=== PATIENT | male | born 1965 | race Caucasian/White ===

== ENCOUNTER 2021-05-22 20:37 | Emergency (ER) | payer OTHER, SELFPAY ==
[2021-05-22 20:57] VITALS: BP 152/87; PULSE 120; RESP 20; TEMP 36.3; O2SAT 98
--- NOTE | 2021-05-23 01:05 | PC.NURSE ---
Pt upset re: wait. Yelling: This could be something simple and I don't have time to wait around. all I wanted was a test so I can go back to work! Pt then seen leaving ED wr, walking toward parking lot.
--- NOTE | 2021-05-23 02:15 | PC.NURSE ---
No answer and not present in wr when called for ED room assignment.
== END 2021-05-23 02:22 | disposition left against medical advice (07) ==
LOC: ANHED 05-23 02:21
PROVIDERS: PCP Internal Medicine
DX: R11.10 Vomiting, unspecified (principal)
CPT/HCPCS: 99199

== ENCOUNTER 2021-05-23 15:01 | Emergency (ER) | payer OTHER, SELFPAY ==
[2021-05-23 15:13] VITALS: BP 130/82; PULSE 87; RESP 16; TEMP 36.4; O2SAT 100
--- NOTE | 2021-05-23 15:15 | ED.HA ---
HPI - Headache General Chief Complaint: Headache Stated Complaint: Headache Time Seen by Provider: 05/23/21 15:15 Source: patient Mode of arrival: ambulatory Limitations: no limitations History of Present Illness HPI Narrative: Lonnie Day is a 56 yo male with a PMH of HTN, hyperlipideima social anxiety, who comes to express care as he vomited twice yesterday while at work and had to leave work and is still not feeling that well today so he did not go to work this morning. He has had his medication today and drink well water she has been has not tried to eat anything more solid than that. Asked if he felt he needed antiemetic he said no; asked if he could visit his parents tomorrow and left to his discretion based on how he feels Related Data Allergies Allergy/AdvReac Type Severity Reaction Status Date / Time No Known Allergies Allergy Verified 05/23/21 15:27 Review of Systems Review of Systems: CONSTITUTIONAL: Denies fever, chills, sweats. EYES: Denies visual changes, redness, discharge. ENT: Denies rhinorrhea, congestion, sore throat, otalgia. CARDIOVASCULAR: Denies chest pain, palpitations, edema. RESPIRATORY: Denies dyspnea, wheezing, cough GASTROINTESTINAL: Denies abdominal pain, has had nausea, vomiting x2 last night, diarrhea. GENITOURINARY: Denies dysuria, hematuria, abnormal discharge SKIN: Denies rash or itching. NEUROLOGIC: Denies numbness, or focal weakness. PSYCHIATRIC: Denies anxiety or depression. PMFSH Past Medical History Medical History Hyperlipidemia LDL goal <130 Hypertension Social anxiety disorder Family History Family History Mother Parkinson disease Father Diabetes mellitus Hypertension Social History Social History (Updated 05/23/21 @ 15:31 by Kim Barber CNP) Smoking status: Never smoker Alcohol intake: current Drinks per week: 2 Alcohol use details: occasionally, due to arthritis in left ankle sometimes uses alcohol for pain relief Substance use: never Comments At time of signature, I agree with nursing past medical, surgical, social and family history. There is no relevant family history pertinent to the presenting complaint. Exam Narrative: GENERAL: This is a well-nourished, well-developed patient, in no distress. HEAD: normocephalic, atraumatic. EYES: Sclera clear/white. Vision is grossly intact. EARS: External ears normal, . Hearing grossly intact. NOSE: External nose normal without nasal discharge, nares without redness, no rhinorrhea. THROAT: Mucous membranes moist, NECK: Neck supple, CARDIOVASCULAR: Regular rate and rhythm without murmurs, gallops, or rubs. RESPIRATORY: Clear to auscultation. Breath sounds equal bilaterally. No wheezes, rales, or rhonchi. GASTROINTESTINAL: Abdomen soft, SKIN: warm, intact with no suspicious lesions or rash, good texture and turgor. NEURO: awake, alert, and oriented to person, place and time. There were no obvious focal neurologic abnormalities. Steady gait EXTREMITIES: Normal range of motion. BACK: Nontender without deformity Course Course Emergency Course: Patient vomited x2 last night had a headache he left work early he went to the emergency room but left without being seen as the wait was too long and today woke up with a slight headache and a little nausea but took his pills and drink water and has had no problems since then Patient with a when an antiemetic or other medication he said that he wanted to rest and gradually increase his diet to solid foods Follow-up with primary care physician this week if there is further issues Vital Signs Vital signs: Vital Signs Temperature 97.6 F 05/23/21 15:13 Pulse Rate 87 05/23/21 15:13 Respiratory Rate 16 05/23/21 15:13 Blood Pressure 130/82 05/23/21 15:13 Pulse Oximetry 100 05/23/21 15:13 Temperature 97.6 F 10
== END 2021-05-23 15:38 | disposition home or self-care (01) ==
PROVIDERS: Emergency Provider Nurse Practitioner; PCP Internal Medicine
DX: R11.14 Bilious vomiting (principal); E78.5 Hyperlipidemia, unspecified; I10 Essential (primary) hypertension; F40.11 Social phobia, generalized; M19.072 Primary osteoarthritis, left ankle and foot
CPT/HCPCS: 99213; G0463

== ENCOUNTER → 2021-08-18 12:18 | Outpatient (CLI) | payer OTHER, SELFPAY ==
--- NOTE | ~2021-08-18 | XR_ITS ---
EXAMINATION: XR chest 2V EXAM DATE: 08/18/2021 12:28 INDICATION: R22.1 - Localized swelling, mass and lump, neck . TECHNIQUE: Frontal and lateral projections of the chest obtained and reviewed. There is no prior nikita dy for comparison. FINDINGS: The lungs are clear. There are no pleural effusions. The cardiomediastinal silhouette is within normal limits. There is no pneumothorax suspected. The bones and soft tissues are unremarkab le. IMPRESSION: Unremarkable chest x-ray exam. Consider soft tissue ultrasound of symptomatic region. Reviewed, dictated and finalized at location A. [employer]PER IMPRESSION: Unremarkable chest x-ray exam. Consider soft tissue ultrasound of s ymptomatic region.
== END ==
PROVIDERS: PCP Family Medicine; Visit Provider Family Medicine
DX: R21 Rash and other nonspecific skin eruption (principal)
CPT/HCPCS: 71046

== ENCOUNTER 2021-09-04 14:07 | Outpatient (CLI) | payer OTHER, SELFPAY ==
--- NOTE | 2021-09-04 14:10 | ECG_ITS ---
Measurements Intervals [place] Rate: 84 P: 38 MO: 203 QRS: -6 QRSD: 108 T: 83 QT: 361 QTc: 427 Interpretive Statements SINUS RHYTHM CANNOT RULE OUT SEPTAL INFARCT, AGE INDETERMINATE BORDERLINE ST-T WAVE ABNORMALITY- HIGH LATERAL LEADS BASELINE ARTIFACT- I, II, III, V5-V6 ABNORMAL ECG Electronically Signed On 09-04-2021 14:47:46 INSTRUCTIONAL LEADER by Cristian Erickson D.O.
[2021-09-04 14:47] LABS: Anion Gap 9 mmol/L (8-16); Blood Urea Nitrogen 19 mg/dL (9-20); Calcium 9.1 mg/dL (8.4-10.2); Carbon Dioxide 34 mmol/L (22-30); Chloride 96 mmol/L (98-107); Estimated Glomerular Filt Rate > 60; Glucose 105 mg/dL (65-110); Potassium 3.1 mmol/L (3.4-5.0); Sodium 139 mmol/L (137-145)
== END 2021-09-04 14:08 | disposition home or self-care (01) ==
PROVIDERS: Anesthesiology; PCP Internal Medicine; Visit Provider Surgery
DX: Z79.899 Other long term (current) drug therapy (principal); I10 Essential (primary) hypertension; Z01.818 Encounter for other preprocedural examination; R94.31 Abnormal electrocardiogram [ECG] [EKG]
CPT/HCPCS: 36415; 80048; 93005

== ENCOUNTER 2021-09-07 00:16 | Day surgery (SDC) | payer OTHER, SELFPAY ==
[2021-09-01 15:28] VITALS: BMI 27.8
--- NOTE | 2021-09-01 15:39 | PC.NURSE ---
Report to the Outpatient Waiting Room, entrance under the green pavilion located off [facility], at time 6:30 on date 09/07/21. OR Time: 8:30. - You will be asked a series of questions to screen for COVID 19 for your protection. - A mask is required within the hospital. - No visitors are allowed at this time. Preoperative COVID Testing Requirements: No COVID Test needed if: (proof is required; if not received patient will have Rapid Test prior to entry) - Patient has received COVID Vaccine at least 14 days prior to procedure date or - Patient has positive COVID test result within last 90 days of surgery date. COVID Test needed if above criteria is not met Patients may have clear liquids (water, carbonated beverages, clear teas, apple juice) until 3 hours prior to surgery (5:30) with a maximum of 20 ounces. - No food from midnight until time of surgery Take the following medications with a SIP of water the morning of surgery: METOPROLOL, VENLAFAXINE Medications to discontinue per physician: VITAMINS/SUPPLEMENTS (POTASSIUM) Date to take last dose: 09/03/[address] DIEHL'S INSTRUCTIONS REGARDING ASPIRIN Please no make-up, nail macedonian, hairspray, perfume, deodorant, or body powder the day of surgery. No jewelry (including any body piercings) or valuables the day of surgery, leave them at home. Please take a shower or bath the night before, or the morning of, surgery with an antibacterial soap. Wear comfortable, loose fitting clothing. - Jewelry must be removed prior to entering the operating room. Rings and piercings that are not removed may be cut off. - The hospital will not accept responsibility for valuables. - Please leave all valuables, including medications, at home the day of surgery. If you are going home after surgery, a licensed charter coach driver must drive you home. - NO public transportation without another adult. - We recommend that an adult stay with you for 24 hours following discharge. - We also recommend that you do not drive, make important decision, drink alcoholic beverages, or take any drugs that were not prescribed by your health care provider for at least 24 hours after your discharge time. Follow any additional instructions given to you from your surgeon. Telephone instructions given to RAMY GLASGOW and asked if any additional questions and then verbalized understanding. Patient advised to call surgeon office or pre surgery nurse liaison [phone] if any additional questions.
--- NOTE | 2021-09-07 07:17 | P.PNAN_ITS ---
Anes - Initial Pre Proc Eval Procedure: Operation Date: 09/07/21 09:00 Proposed Procedures p Excisional Biopsy Right Neck Mass - Kailee Mcintosh MD Date/Time: 09/07/21 07:17 Surgeon: Kailee Mcintosh MD Pre Op Diagnosis: right neck mass 10x8cm Patient Data Age: 56 Gender: M Height: 1.8 m Weight: 90.72 kg Allergies Allergy/AdvReac Type Severity Reaction Status Date / Time No Known Allergies Allergy Verified 09/01/21 15:24 Home Medications Medication Instructions Recorded Confirmed Type aspirin 81 mg tablet,delayed 81 mg PO DAILY #90 tablet 03/12/21 09/01/21 Rx release rosuvastatin 10 mg tablet 10 mg PO DAILY #90 tablet 03/12/21 09/01/21 Rx potassium chloride 20 mEq 20 meq PO BID #180 tablet 05/20/21 09/01/21 Rx tablet,extended release(part/cryst) metoprolol succinate 25 mg 25 mg PO DAILY #30 tablet 07/07/21 09/01/21 Rx tablet,extended release 24 hr hydrochlorothiazide 50 mg PO DAILY 08/05/21 09/01/21 History quinapril 40 mg PO DAILY 08/05/21 09/01/21 History venlafaxine 225 mg PO DAILY 08/05/21 09/01/21 History Patient hx anesthesia problems: none Family hx anesthesia problems: none Results Review: All pre-operative results and documents have been reviewed as part of the pre-operative evaluation. [facility] Past Medical History Medical History Depression Hyperlipidemia LDL goal <130 Hypertension Social anxiety disorder Family History Family History Mother Parkinson disease Father Diabetes mellitus Hypertension Social History Social History Smoking status: Never smoker Alcohol intake: current Drinks per week: 2 Alcohol use details: occasionally, due to arthritis in left ankle sometimes uses alcohol for pain relief Substance use: never Substance use type: does not use Living arrangements: with family Spiritual care concerns: No Anes - Eval Final PreProcedure Day of Procedure 09/07/21 07:17 Patient weight: overweight Heart: regular rate and rhythm Lungs: clear to auscultation Airway: Mallampati scale class II Neurological: alert and oriented Last oral intake: >/= 8 hours ASA classification: III Emergent: no Anesthetic plan: proceed Anesthesia type and monitoring: general GIVS and standard monitoring Results Review: All pre-operative results and documents have been reviewed as part of the pre-operative evaluation. Informed Consent: The patient's anesthetic plan and its attendant risks and benefits were discussed with the patient/family/POA. Questions were solicited and answers provided to the satisfaction of the patient/family/POA.
--- NOTE | 2021-09-07 07:26 | WPDHPUPDATE1 ---
History and Physical Update Update Date/Time: 09/07/21 07:26 History and Physical has been reviewed, including an updated exam of the patient. There are NO changes in the patient's condition. Risks, benefits, and alternatives have been discussed and questions answered. Patient agrees to proceed with procedure.
[2021-09-07 07:45] VITALS: BP 134/93; PULSE 74; RESP 18; TEMP 36.3; O2SAT 98
[2021-09-07] MEDS: LACTATED RINGERS 1,000 ML 30 ML IV CONT (07:45)
[2021-09-07] MEDS: ceFAZolin 2 GM/D5W 50 ML 2 GM/50 ML BAG IVPB (08:30)
[2021-09-07] MEDS: BUPIVACAINE/EPINEPHRINE 0.5% 10 ML VIAL 30 ML INFILTRATE (08:38)
--- NOTE | 2021-09-07 09:12 | W.PM.PROC2 ---
Procedure Note - Detailed Date of Procedure 09/07/21 Pre-op Diagnosis right neck mass 10x8cm Post-op Diagnosis same Procedure Performed Excisional biopsy right anterior neck/shoulder mass Surgeon Kailee Mcintosh MD Anesthesia MAC and local Indications 56-year-old male presenting to the office with a right anterior neck/shoulder mass that has significantly grown in size over the last couple of months Findings large subcutaneous mass right anterior neck/shoulder, no involvement of underlying muscle Description of Procedure The patient was taken to the operating room placed in the supine position. After adequate induction of MAC anesthesia, the patient was prepped and draped in the normal sterile fashion. A time-out was then done to verify the patient's identity, as well as the procedure being performed. I began by localizing the area over the mass. I then made incision over the mass with a 15 blade scalpel. This incision was carried down through the dermis into the subcutaneous tissue. At this point a very large well-circumscribed mass was encountered. Using both blunt dissection and the Bovie cautery, I was slowly able to take down the adhesions to this mass. The mass was noted to travel posteriorly to the trapezius muscle, however, it did not seem to involve the muscle. Once the mass was completely freed up, I was able to excise it full. This was now sent to pathology for further review. No other pathology was seen in this area. I gained hemostasis with the Bovie cautery and the wound was washed out with normal saline. I then closed subcutaneous tissue with 3-0 Vicryl suture. The skin was closed with 4-0 Monocryl subcuticular suture. Dermabond was placed on the wound. The patient tolerated the procedure well and will be sent to the recovery room in stable condition. Estimated Blood Loss 10 Drains No Packing No Pathology yes Complications No immediate complications Condition stable Disposition PACU
[2021-09-07 09:18] VITALS: BP 115/65; PULSE 74; RESP 16; O2SAT 93
[2021-09-07 09:47] VITALS: BP 118/72; PULSE 72; RESP 16; O2SAT 98
[2021-09-07 10:18] VITALS: BP 134/76; PULSE 66; RESP 16
== END 2021-09-07 10:30 | disposition home or self-care (01) ==
PROVIDERS: PCP Internal Medicine; Visit Provider Surgery
PROC: (CPT 21552; principal; 2021-09-07 09:00)
DX: D17.0 Benign lipomatous neoplasm of skin and subcutaneous tissue of head, face and neck (principal); Z79.82 Long term (current) use of aspirin; I10 Essential (primary) hypertension; F32.9 Major depressive disorder, single episode, unspecified; E78.5 Hyperlipidemia, unspecified; F41.8 Other specified anxiety disorders
CPT/HCPCS: 21552; 36415; 80048; 88304; 93005; A9270; J0690; J1100; J2250; J2405; J2704; J3010; J7120

== ENCOUNTER 2022-03-01 01:34 | Day surgery (SDC) | payer OTHER, SELFPAY ==
[2022-02-09 12:25] VITALS: BMI 27.9
--- NOTE | 2022-03-01 10:24 | WPDANESEPPF ---
Anes - Initial Pre Proc Eval Procedure: Operation Date: 03/01/22 12:30 Proposed Procedures p Screening Colonoscopy - Jose Roberto Johnston MD Date/Time: 03/01/22 10:24 Surgeon: Jose Roberto Johnston MD Pre Op Diagnosis: neoplasm screening Patient Data Age: 57 Gender: M Height: 1.8 m Weight: 91 kg Allergies Allergy/AdvReac Type Severity Reaction Status Date / Time No Known Allergies Allergy Verified 03/01/22 10:48 Home Medications Medication Instructions Recorded Confirmed Type potassium chloride 20 mEq 20 meq PO BID #180 tabs 05/20/21 03/01/22 Rx tablet,extended release(part/cryst) (Klor-Con M) quinapril 40 mg tablet 40 mg PO DAILY 08/05/21 03/01/22 History venlafaxine 75 mg capsule,extended 225 mg PO DAILY 08/05/21 03/01/22 History release 24 hr metoprolol succinate 25 mg 25 mg PO DAILY #90 tabs 12/28/21 03/01/22 Rx tablet,extended release 24 hr aspirin 81 mg tablet,delayed 81 mg PO DAILY #90 tabs 01/04/22 03/01/22 Rx release hydrochlorothiazide 50 mg tablet 50 mg PO DAILY #90 tabs 01/04/22 03/01/22 Rx rosuvastatin 10 mg tablet 10 mg PO DAILY #90 tabs 01/04/22 03/01/22 Rx sodium sul 1.479 gram-potas ch See Rx Instructions PO PER PKG DIR 01/04/22 03/01/22 Rx 0.188 gram-magnes sul 0.225 gram #24 tabs tablet (Sutab) Cosopt (PF) 2 drp EACH EYE BID 02/09/22 03/01/22 History brimonidine 0.2 % eye drops 2 drp EACH EYE DAILY 02/09/22 03/01/22 History Patient hx anesthesia problems: none Family hx anesthesia problems: none Results Review: All pre-operative results and documents have been reviewed as part of the pre-operative evaluation. [facility] Past Medical History Medical History Depression Hyperlipidemia LDL goal <130 Hypertension Social anxiety disorder Surgical History Surgical History History of excision of mass Excisional biopsy right anterior neck/shoulder mass 09/07/21. Family History Family History Mother Parkinson disease Father Diabetes mellitus Hypertension Social History Social History Smoking status: Never smoker Alcohol intake: current Drinks per week: 2 Alcohol use details: on occassion Substance use: never Substance use type: does not use Living arrangements: with family Spiritual care concerns: No Anes - Eval Final PreProcedure Day of Procedure 03/01/22 10:24 Patient weight: overweight Heart: regular rate and rhythm Lungs: clear to auscultation Airway: Mallampati scale class II Neurological: alert and oriented Last oral intake: >/= 8 hours ASA classification: II Emergent: no Anesthetic plan: proceed Anesthesia type and monitoring: general GIVS and standard monitoring Results Review: All pre-operative results and documents have been reviewed as part of the pre-operative evaluation. Informed Consent: The patient's anesthetic plan and its attendant risks and benefits were discussed with the patient/family/POA. Questions were solicited and answers provided to the satisfaction of the patient/family/POA.
[2022-03-01 10:49] VITALS: BP 124/90; PULSE 73; RESP 18; TEMP 36.6; O2SAT 98
[2022-03-01] MEDS: LACTATED RINGERS 1,000 ML 150 ML IV CONT (10:52)
--- NOTE | 2022-03-01 11:24 | PM.HPGS ---
History of Present Illness History of Present Illness Consent: Risks, benefits, and alternatives have been discussed and questions answered. Patient agrees to proceed with procedure. Chief complaint: neoplasm screening Narrative: Lonnie Day is a 57 year old male here for first screening colonoscopy Review of Systems Constitutional: Constitutional: Denies headache(s) and Denies weakness Eyes: Eyes: Denies blurry vision ENT: Reports Normal hearing present, Denies headache(s) and Denies neck pain Cardiovascular: Cardiovascular: Denies chest pain and Denies dyspnea Respiratory: Respiratory: Denies dyspnea Gastrointestinal: Gastrointestinal: Reports no additional gastrointestinal complaints Genitourinary: Genitourinary: Denies dysuria Musculoskeletal: Musculoskeletal: Denies neck pain Integumentary/Breasts: Skin/Breast: Denies dry skin Neurologic: Reports Normal hearing present, Denies headache(s) and Denies weakness Psychiatric: Psychiatric: Denies anxiety Endocrine: Endocrine: Denies change in body appearance Hematologic/Lymphatic: Hematologic/Lymphatic: Denies easy bleeding Allergic/Immunologic: Allergic/Immunologic: Denies urticaria PMF Past Medical History Medical History (Updated 03/01/22 @ 11:25 by Jose Roberto Johnston MD) Colon cancer screening Depression Hyperlipidemia LDL goal <130 Hypertension Social anxiety disorder Surgical History Surgical History History of excision of mass Excisional biopsy right anterior neck/shoulder mass 09/07/21. Family History Family History Mother Parkinson disease Father Diabetes mellitus Hypertension Social History Social History Smoking status: Never smoker Alcohol intake: current Drinks per week: 2 Alcohol use details: on occassion Substance use: never Substance use type: does not use Living arrangements: with family Spiritual care concerns: No Meds Home Medications and Allergies Home Medications Medication Instructions Recorded Confirmed Type potassium chloride 20 mEq 20 meq PO BID #180 tabs 05/20/21 03/01/22 Rx tablet,extended release(part/cryst) (Klor-Con M) quinapril 40 mg tablet 40 mg PO DAILY 08/05/21 03/01/22 History venlafaxine 75 mg capsule,extended 225 mg PO DAILY 08/05/21 03/01/22 History release 24 hr metoprolol succinate 25 mg 25 mg PO DAILY #90 tabs 12/28/21 03/01/22 Rx tablet,extended release 24 hr aspirin 81 mg tablet,delayed 81 mg PO DAILY #90 tabs 01/04/22 03/01/22 Rx release hydrochlorothiazide 50 mg tablet 50 mg PO DAILY #90 tabs 01/04/22 03/01/22 Rx rosuvastatin 10 mg tablet 10 mg PO DAILY #90 tabs 01/04/22 03/01/22 Rx sodium sul 1.479 gram-potas ch See Rx Instructions PO PER PKG DIR 01/04/22 03/01/22 Rx 0.188 gram-magnes sul 0.225 gram #24 tabs tablet (Sutab) Cosopt (PF) 2 drp EACH EYE BID 02/09/22 03/01/22 History brimonidine 0.2 % eye drops 2 drp EACH EYE DAILY 02/09/22 03/01/22 History Allergies Allergy/AdvReac Type Severity Reaction Status Date / Time No Known Allergies Allergy Verified 03/01/22 10:48 Vital Signs Vital Signs - 24 hr 03/01/22 10:49 Temperature 97.8 F Pulse Rate 73 Respiratory Rate 18 Blood Pressure 124/90 Pulse Oximetry 98 Oxygen Delivery Room Air Exam Const: General: comfortable and no acute distress HENMT: General nose exam: Normal nares present Eyes: General: appearance normal, both eyes and all related structures Neck: Neck: no JVD Resp: Auscultation: clear to auscultation bilaterally Cardio: Rate: regular rate Rhythm: regular rhythm GI: Inspection: non-distended GI Palp: Yes Soft to palpation Skin: General skin exam: normal color Neuro: General: gait normal Speech: normal speech Extrem: General: normal to inspection P
[2022-03-01 11:52] VITALS: BP 93/63; PULSE 74; RESP 18; O2SAT 94
[2022-03-01 12:02] VITALS: BP 112/78; PULSE 87; RESP 18; O2SAT 98
[2022-03-01 12:12] VITALS: BP 122/86; PULSE 64; RESP 18; O2SAT 97
== END 2022-03-01 12:21 | disposition home or self-care (01) ==
PROVIDERS: PCP Family Medicine; Visit Provider Internal Medicine Gastroenterology
PROC: 0DJD8ZZ Inspection of Lower Intestinal Tract, Via Natural or Artificial Opening Endoscopic (ICD-10-PCS; CPT 45378; principal; 2022-03-01 12:30)
DX: Z12.11 Encounter for screening for malignant neoplasm of colon (principal); K64.8 Other hemorrhoids; I10 Essential (primary) hypertension; E78.5 Hyperlipidemia, unspecified; F32.A Depression, unspecified; F41.8 Other specified anxiety disorders
CPT/HCPCS: 45378; J2704; J7120

== ENCOUNTER 2022-05-11 23:36 | Emergency (ER) | payer OTHER, SELFPAY ==
--- NOTE | ~2022-05-11 | XR_ITS ---
EXAMINATION: XR finger 3rd RT min 2V DATE: 05/12/2022 02:12 INDICATION: Right hand third digit laceration. TECHNIQUE: 3 views of right hand third digit were obtained. COMPARISON: None. FINDINGS: There is radial subluxation of second and third distal phalanges with respect to the middle phalanges. No fracture. There is severe osteoarthritis of second and third distal interphalangeal kamryn ints and third metacarpophalangeal joint. There is mild osteoarthritis of third proximal interphalang eal joint and second metacarpophalangeal joint. There are dystrophic soft tissue calcifications in th e third digit dorsal to the middle phalanx and palmar to the proximal phalanx. There is a laceration of the tip of the third digit. IMPRESSION: 1. No fracture or radiopaque foreign body. 2. Polyarticular osteoarthritis. Reviewed, dictated and finalized at location A.
[2022-05-12 00:05] VITALS: BP 135/102; PULSE 106; RESP 16; TEMP 36.5; O2SAT 100
--- NOTE | 2022-05-12 00:59 | ED.WOUNDLAC ---
HPI - Wound/Laceration General Chief Complaint: Wound/Laceration Stated Complaint: laceration on finger Time Seen by Provider: 05/12/22 00:38 Source: patient Mode of arrival: ambulatory Limitations: no limitations History of Present Illness HPI narrative: This is a 57-year-old male that presents to the emergency department for right third finger injury sustained just prior to arrival. Reports he accidentally got the finger caught in some equipment at work. Reports laceration to the distal phalanx palmar surface. He is not up-to-date on tetanus. Denies decreased range of motion or numbness. Related Data Home Medications Medication Instructions Recorded Confirmed venlafaxine 75 mg capsule,extended 225 mg PO DAILY 08/05/21 03/01/22 release 24 hr Cosopt (PF) 2 drp EACH EYE BID 02/09/22 03/01/22 brimonidine 0.2 % eye drops 2 drp EACH EYE DAILY 02/09/22 03/01/22 Allergies Allergy/AdvReac Type Severity Reaction Status Date / Time No Known Allergies Allergy Verified 03/01/22 10:48 Review of Systems Review of Systems: CONSTITUTIONAL: Denies fever SKIN: Reports laceration MUSCULOSKELETAL: Denies joint pain NEUROLOGIC: Denies numbness All systems reviewed & are unremarkable except as noted in HPI and below PMFSH Past Medical History Medical History (Updated 05/12/22 @ 03:21 by Sherry Kaplan PA-C) Colon cancer screening Depression Hyperlipidemia LDL goal <130 Hypertension Social anxiety disorder Surgical History Surgical History History of excision of mass Excisional biopsy right anterior neck/shoulder mass 09/07/21. Family History Family History Mother Parkinson disease Father Diabetes mellitus Hypertension Social History Social History Smoking status: Never smoker Alcohol intake: current Drinks per week: 2 Alcohol use details: on occassion Substance use: never Substance use type: does not use Spiritual care concerns: No Exam Narrative: GENERAL: Well-appearing, well-nourished, and in no acute distress. HEAD: Normocephalic, atraumatic. EYES: EOMI. EXTREMITIES: Normal range of motion. No edema. Right third finger palmar surface with 2cm irregular flap laceration involving the palmar aspect of the distal phalanx with some skin avulsed SKIN: Warm, dry, no rash. NEURO: No focal deficits. Alert and oriented x3. PSYCH: Normal mood and affect Course Vital Signs Vital signs: Vital Signs Temperature 97.7 F 05/12/22 00:05 Pulse Rate 106 H 05/12/22 00:05 Respiratory Rate 16 05/12/22 00:05 Blood Pressure 135/102 H 05/12/22 00:05 Pulse Oximetry 100 05/12/22 00:05 Oxygen Delivery Room Air 05/12/22 00:05 Temperature 97.7 F 05/12/22 00:05 Pulse Rate 106 H 05/12/22 00:05 Respiratory Rate 18 05/12/22 03:42 Blood Pressure 135/102 H 05/12/22 00:05 Pulse Oximetry 98 05/12/22 03:42 Oxygen Delivery Room Air 05/12/22 00:05 Procedures Laceration Laceration 1: Date: 05/12/22 Time: 03:19 Site: hand Side (If applicable): right Size (cm): 2 Description: flap and irregular Depth: simple, single layer Local Anesthetic: lidocaine 1% Amount of anesthesia used (mL): 5 Pre-repair: wound explored and irrigated extensively ====== Skin Level ====== Skin layer closed with: nylon Size (cm): 4-0 Number of sutures: 2 Technique: simple, interrupted ====== Subcutaneous Layer ====== ====== Muscle Layer ====== ====== Tendon Layer ====== Dressing: There was some bleeding that was controlled with silver nitrate. Wound bandaged with antibiotic ointment, Telfa, Kerlix and Coban MDM - Wound/Laceration MDM Narrative Medical decision making narrative: Patient presents emergen
[2022-05-12] MEDS: TETANUS,DIPHTHERIA,AC PERTUSSIS ADULT (0.5 ML) BOOSTRIX IM (02:08)
[2022-05-12 03:42] VITALS: RESP 18; O2SAT 98
== END 2022-05-12 03:43 | disposition home or self-care (01) ==
PROVIDERS: Emergency Provider General Practice; PCP Family Medicine
DX: S61.212A Laceration without foreign body of right middle finger without damage to nail, initial encounter (principal); F32.9 Major depressive disorder, single episode, unspecified; I10 Essential (primary) hypertension; E78.5 Hyperlipidemia, unspecified; W31.9XXA Contact with unspecified machinery, initial encounter; Z23 Encounter for immunization
CPT/HCPCS: 12001; 73140; 90471; 90715; 99283

== ENCOUNTER 2023-04-18 09:44 | Outpatient (CLI) | payer OTHER, SELFPAY ==
[2023-04-18 18:46] LABS: Alanine Aminotransferase 29 U/L (6-50); Albumin Level 4.2 g/dL (3.5-5.1); Alkaline Phosphatase 102 U/L (38-126); Anion Gap 2 mmol/L (8-16); Aspartate Amino Transferase 34 U/L (17-59); Bilirubin,Total 0.3 mg/dL (0.2-1.3); Blood Urea Nitrogen 17 mg/dL (9-20); Carbon Dioxide 38 mmol/L (22-30); Chloride 95 mmol/L (98-107); Cholesterol 151 mg/dL (0-200); Estimated Glomerular Filt Rate > 60; Glucose 95 mg/dL (65-110); HDL Direct 45 mg/dL; Potassium 3.6 mmol/L (3.4-5.0); Sodium 135 mmol/L (137-145); Triglycerides 139 mg/dL (<150)
[2023-04-18 19:00] LABS: LDL Cholesterol Direct 81 mg/dL
[2023-04-18 19:16] LABS: Prostate Specific Antigen 0.2 ng/mL (< OR = 4.0)
== END 2023-04-18 09:45 | disposition home or self-care (01) ==
LOC: ANHGOSHLAB 09:47
PROVIDERS: PCP Family Medicine; Visit Provider Family Medicine
DX: E78.5 Hyperlipidemia, unspecified (principal); Z12.5 Encounter for screening for malignant neoplasm of prostate; Z13.228 Encounter for screening for other metabolic disorders
CPT/HCPCS: 36415; 80053; 80061; 84153; G0103

== ENCOUNTER 2024-12-31 15:20 | Outpatient (CLI) | payer OTHER, SELFPAY ==
--- OUTSIDE RECORDS SUMMARY | 2024-12-31 15:25 | XMS_ITS | Encounter Summary ---
Author Organization [facility] Address [address] [facility] [place] [address] Care Team Providers Care Brilliandeer Looper Name Role Phone Robb Madrigal MD Primary Care Provider [phone] Adolfo Howell DO Primary Care Provider [phone] Mona Mcclellan MD Primary Care Provider [phone] Reason for Visit * Reason Comments Refill Request Encounter Details Date Type Department Care Team (Late st Contact Info) Description 08/29/2022 Refill [facility] [address] [place] [address] Vijay Humphries MD [address] [place] [address] [place] [address] Refill Request Social History Tobacco Use Types Packs/Day Years Used Date Smoking Tobacco: Never Smokeless Tobacco: Never Alcohol Use Standard Drinks/Week Comments Yes 0 (1 standard drink = 0.6 oz pur e alcohol) frequently AUDIT-C Answer Date Recorded Q1: How often do you have a drink containing alcohol? Never 01/07/2022 Q2: How many drinks containi ng alcohol do you have on a typical day when you are drinking? Patient does not drink Q3: How often do you have si x or more drinks on one occasion? 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 Answer Date of Assessment Author No 12/18/2020 4:20 PM CDT Mateo Mack RN * Is person blind or have serious difficulty seeing? Answer Date of Assessment Author No 12/18/2020 4:20 PM CDT Mateo Mack RN * Does person have serious difficulty walking/climbing stairs? Answer Date of Assessment Author No 12/18/2020 4:20 PM CDT Mateo Mack RN * Does person have difficulty dressing/bathing? Answer Date of Assessment Author No 12/18/2020 4:20 PM VIRIT Mateo Mack RN * Does person have difficulty doing errands alone? Answer Date of Assessment Author No 12/18/2020 4:20 PM VIRIT Mateo Mack RN documented as of this encounter Mental Status * Does person have difficulty concentrating/remembering/making decisions? Answer Entry Date Author No 12/18/2020 4:20 PM Mateo Junior RN documented in this encounter Plan of Treatment Upcoming Encounters Date Type Department Care Team (Late st Contact Info) Description 03/19/2025 10:30 AM CDT Office Visit [facility] - Ophthalmology [address] [place] [phone] documented as of this encounter Visit Diagnoses Not on filedocumented in this encounter Care Teams Brilliandeer Looper Relationship Specialty Start Date End Date Robb Madrigal MD [address] [place] [address] PCP - General 08/25/22 09/07/22 Adolfo Howell DO [address] [place] [address] PCP - General 09/08/22 12/23/24 Mona Mcclellan MD [address] [place] [phone] PCP - General Family Medicine 12/24/24 documented as of this encounter
--- OUTSIDE RECORDS SUMMARY | 2024-12-31 15:25 | XMS_ITS | Clinical Summary ---
Author Organization [facility] Address [address] [facility] [place] [address] Care Team Providers Care Life Skills Worker Name Role Phone Mona Mcclellan MD Primary Care Provider [phone] Source Comments [facility],non-owned Affiliates and Associated Physician Practices is amultiple site organization consisting of ambulatory clinics and hospital sitesin [place], [place], [place] and [place]. This disclosure is being madepursuant to the Care Everywhere program and may not contain all information available regarding this patient. Last updated 18.[facility] Allergies No known active allergies Medications * Be aware that medications may not be up to date on this document. Alwaysverify current medications with the patient. aspirin EC (ECOTRIN) 81 MG tablet Take 1 (one) tablet by mouth once daily Active quinapril (ACCUPRIL) 40 MG tablet Take 1 (one) tablet by mouth once daily Active venlafaxine XR 24hr (EFFEXOR XR) 75 MG capsule Take 1 (one) capsule by mouth once daily Active rosuvastatin (CRESTOR) 10 MG tablet Take 1 (one) tablet by mouth once daily Active potassium chloride ER (KLOR-CON M) 20 MEQ tablet Take 1 (one) tablet by mouth once daily Active hydroCHLOROthiazi de (HYDRODIURIL) 50 MG tablet Take 0.5 (one-half) tablet by mouth once daily 30 tablet 1 Active metoprolol succinate XL 24hr (TOPROL XL) 25 MG tablet 1 Active sodium chloride, hypertonic, (El 128) 5 % Instill 1 (one) Each into left eye at bedtime Active White Petrolatum-Minera l Oil (Systane Nighttime) Instill 0.25 inches into left eye at bedtime Active dextran 70-hypromellose, PF, 0.1-0.3 % ophthalmic solution Instill 1 (one) drop into left eye every 2 hours Active doxycycline monohydrate 100 MG capsule Take 1 (one) capsule by mouth every 12 hours 60 capsule 2 Active ascorbic acid (Vitamin C) 500 MG tablet Take 4 (four) tablets by mouth once daily 120 tablet 4 2 Active erythromycin (Romycin) 5 MG/GM ophthalmic ointment Apply thin ribbon to incisions four times a day as well as into the left eye at bedtime. 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 (AF LURIA, FLUZONE TRIVALENT; 6MO+) (IIV3) 05/08/2017 Covid Citelighter primary monoval ent 12+ yr 0.3mL Purple cap 07/06/2021,10/27/2020,10/06/2020 FLU VACCINE QUAD IIV4 SPLIT 0.25 ML IM 8 INFLUENZA VACCINE 05/22/2020 INFLUENZA VACCINE, QUADR. (F LUZONE; FLULAVAL; FLUARIX; AFLURIA QUADRIVALENT; 6MO+), 0.5 ML (IIV4) 05/05/2020,05/07/2018 TD (ADULT), 5 LF TETANUS TOX OID, ADSORBED, PF 11/15/2020 Zoster Hzv Vacc Recombinant Inj Im 08/03/2020, iNFLUENZA VACCINE, RECOM-CASTILLO, QUADR. (FLUBLOCK QUADRIVALENT; 18Y+) (RIV4) 05/18/2021 Family History Medical History Relation Name Comments Diabetes - Type 2 Father Hypertension Father Hypertension Mother Glaucoma Neg Hx Macular Degeneration Neg Hx Relation Name Status Comments Father Mother Social History Tobacco Use Types Packs/Day Years Used Date Smoking Tobacco: Never Smokeless Tobacco: Never Tobacco Cessation:Counseling Given: Not Answered Alcohol Use Standard Drinks/Week Comments Yes 0 [...] more drinks on one occasion? 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 Gender Identity Male 11/15/2020 9:52 AM CDT Sexual Orientation Not on file Last Filed Vital Signs Vital Sign Reading Time Taken Comments Blood Pressure 131/81 06/16/2022 12:36 PM CDT Pulse 76 06/16/2022 12:36 PM CDT Temperature 36.4 C (97.5 F) 06/16/2022 12:31 PM CDT Respiratory Rate 14 06/16/2022 12:36 PM CDT Oxygen Saturation 97% 06/16/2022 12:36 PM CDT Inhaled Oxygen Concentration 100% 01/07/2022 1 0:23 AM CDT Weight 88.9 kg (196 lb) 06/16/2022 9:53 AM CDT Height 180.3 cm (5' 11 ) 06/16/2022 9:53 AM CDT Body Mass Index 27.34 06/16/2022 9:53 AM CDT Plan of Treatment Upcoming Encounters Date Type Department Care Team (Late st Contact Info) Description 03/19/2025 10:30 AM CDT Office Visit [facility] - [facility]mology [facility] [place] [phone] Health Maintenance Due Date Last Done Comments COLON MONITORING 1967 COLONOSCOPY - COLON CA SCREENING 1967 CT COLONOGRAPHY - COLON CA SCREENING 1967 FIT - COLON CA SCREENING 1967 FLEX SIG - COLON CA SCREENING 1967 HIV SCREENING 1982 HEPATITIS C SCREENING 01/12/1985 HEPATITIS B VACCINE (1 of 3 - 19+ 3-dose series) 1986 PNEUMOCOCCAL VACCINE 50+ (1 of 1 - PCV) 2017 COLOGUARD (AGES 45-75) - COLON CA SCREENING 01/15/2023 01/16/2020 Colorectal Cancer Screening 01/15/2023 COVID-19 VACCINE ( season) 2024 07/06/2021, 10/27/2020, 10/06/2020 INFLUENZA VACCINE (Season Ended) 2025 05/18/2021, 05/22/2020, 05/05/2020, Additional history exists DTAP/TDAP/TD VACCINES (2 - Td or Tdap) 11/15/2030 11/15/2020 ZOSTER VACCINE Completed 08/03/2020, 05/05/2020 DEPRESSION SCREENING Completed 12/24/2024 HIB VACCINE Aged Out No longer eligi ble based on patient's age to complete this topic HPV VACCINE Aged Out No longer eligi ble based on patient's age to complete this topic MENINGOCOCCAL (Group B) VACCINE SHARED DECISION-MAKING Aged Out No longer eligible based on patient's age to complete this topic MENINGOCOCCAL GROUPS A/C/Y/W VACCINE Aged Out No longer eligible based on patient's age to complete this topic Medical Devices Implanted Type Area Supervisor Hairspring Fabrication Device Identifier Shelf Expiration Date Model / Serial / Lot Lens Iol 0 D +18.5 Dottie Mod L Acrsf Iq - [id number] Implanted:Qty: 1 on 12/11/2020 by Kaushal Omalley MD at [facility] Left: Eye [employer]ber [employer] 07/04/2023 [id number] / [id number] / Strip Sclr 125x3.5x.75mm Marbella Sty 41 Implanted:Qty: 1 on 12/18/2020 by Irish Coker MD at [facility] Left: Eye Prydeinig Ophthalmic [employer] 05/21/2025- [id number] Slv Rtnl 70mm 2.1mm 1mm Marbella Rnd Strl Implanted:Qty: 1 on 12/18/2020 by Irish Coker MD at [facility] Left: Eye Prydeinig Ophthalmic [employer] 10/19/2024 [id number] Graft Tissue Amniograft Amnio Membr 1.5 - [id number] Implanted:Qty: 1 on 01/07/2022 by Kaushal Omalley MD at [facility] Left: Eye [employer] 11/13/2022 [id number] / [id number] / Insurance AETNA AETNA AETNA PAYOR GENERIC Member Subscriber Plan / Payer (Ef fective 2020-Present) Name:Ramy Glasgow Member ID:Not on file Relation to Subscriber:Self Name:[id number] POSTAL Payer ID:Not on file Group ID:Not on file Type:Worker's Comp Address: [address] [place] [address] [place] DEPT OF LABOR [facility] DEPT OF LABOR [facility] DEPT OF LABOR [facility] AETNA AETNA [place] [address] [place] [address] AETNA AETNA AETNA AETNA AETNA AETNA AETNA AETNA AETNA AETNA AETNA AETNA AETNA Advance Directives * Full Code (Latest Code Status on File) Date Activated Date Inactivated Comments 11/15/2020 12:17 AM 11/16/2020 3:50 PM Care Teams Life Skills Worker Relationship Specialty Start Date End Date Mona Mcclellan MD [address] [place] [address] PCP - General Family Medicine 12/24/24
--- OUTSIDE RECORDS SUMMARY | 2024-12-31 15:26 | XMS_ITS | Encounter Summary ---
Author Organization [facility] Address [address] [place] [address] Care Team Providers Care Videogame Designer Name Role Phone Adolfo Howell DO Primary Care Provider [phone] Encounter Details Date Type Department Care Team (Late st Contact Info) Description 11/19/2024 Results Follow-Up [facility] Family Medicine at [address] [place] [address] Madelin Sheth [address] [place] [address] Social History Tobacco Use Types Packs/Day Years Used Date Smoking Tobacco: Never Assessed Sex and Gender Information Value Date Recorded Sex Assigned at Not on file 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
--- OUTSIDE RECORDS SUMMARY | 2024-12-31 15:26 | XMS_ITS | Encounter Summary ---
Author Organization [facility] Address [address] [facility] [place] [address] Care Team Providers Care Regulatory Auditor Name Role Phone Adolfo Howell DO Primary Care Provider [phone] Mona Mcclellan MD Primary Care Provider [phone] Reason for Visit * Reason Onset Date Comments Refill Request 01/04/2024 Encounter Details Date Type Department Care Team (Late st Contact Info) Description 01/04/2024 Telephone [facility] - Centralized Scheduling [address] [place] [address] Irish Coker MD [address] 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 Answer Entry Date Author No 12/18/2020 4:20 PM CDT Mateo Mack RN documented in this encounter Miscellaneous Notes * Telephone Encounter - Tavia Rodriguez - 01/04/2024 2:42 PM CDT Pt would like a refill on Dorzolamide Timolol, pt stated Dr. Coker gave to him initially. Pt sees Alonzo documented in this encounter Plan of Treatment Upcoming Encounters Date Type Department Care Team (Late st Contact Info) Description 03/19/2025 10:30 AM CDT Office Visit [facility] - Ophthalmology [address] [place] [phone] documented as of this encounter Visit Diagnoses Not on filedocumented in this encounter Care Teams Regulatory Auditor Relationship Specialty Start Date End Date Adolfo Howell DO [address] [place] [phone] PCP - General 09/08/22 12/23/24 Mona Mcclellan MD [address] [place] [phone] PCP - General Family Medicine 12/24/24 documented as of this encounter
--- OUTSIDE RECORDS SUMMARY | 2024-12-31 15:26 | XMS_ITS | Referral Summary ---
Author Organization [address] Address [address] [place] [address] Care Team Providers Care Graphic Designer Name Role Phone Adolfo Howell Primary Care Provider [phone] Encounters Date Type Department Care Team Description 11/19/2024 Results Follow-Up [facility] Family Medicine at [address] [place] [address] Madelin Sheth PA 11/17/2024 5:22 AM CDT - 11/17/2024 11:59 PM CDT Hospital Encounter [address] [address] Discharge Disposition: Discharge to home or self care 11/17/2024 4:49 PM CDT - 11/17/2024 11:59 PM CDT Hospital Encounter [address] [address] Discharge Disposition: Discharge to home or self care 11/17/2024 4:15 PM CDT Office Visit [facility] Care at [address] [phone] Yessica Talley PA Acute viral syndrome (Primary Dx); Nausea and vomiting, unspecified vomiting type from Last 3 Months Allergies No known active allergies Medications brimonidine (ALPHAGAN) 0.2 % ophthalmic solution INSTILL 1 (ONE) DROP INTO LEFT EYE 2 TIMES DAILY Active hydroCHLOROthia zide (HYDRODIURIL) 50 mg tablet Take 1 tablet (50 mg total) by mouth daily Active lisinopriL (PRINIVIL,ZESTR IL) 40 mg tablet Take 1 tablet (40 mg total) by mouth daily Active metoprolol XL (TOPROL-XL) 25 mg extended release tablet Take 1 tablet (25 mg total) by mouth daily Active mupirocin (BACTROBAN) 2 % ointment APPLY TO WOUND AND COVER. 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, left, sequel a 06/25/2022 Glaucoma suspect of right eye 05/31/2022 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 Eye injury, initial encounter 11/15/2020 Hyperlipidemia 07/03/2019 Anxiety 10/17/2018 Essential hypertension 10/17/2018 Social History Tobacco Use Types Packs/Day Years Used Date Smoking Tobacco: Never Assessed Sex and Gender Information Value Date Recorded Sex Assigned at Not on file 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 Gender Identity Not on file Sexual Orientation Not on file Last Filed Vital Signs Vital Sign Reading Time Taken Comments Blood Pressure 137/86 11/17/2024 4:25 PM CDT Pulse 81 11/17/2024 4:25 PM CDT Temperature 36.3 C (97.4 F) 11/17/2024 4:25 PM CDT Respiratory Rate 24 11/17/2024 4:25 PM CDT Oxygen Saturation 98% 11/17/2024 4:25 PM CDT Inhaled Oxygen Concentration - - Weight - - Height - - Body Mass Index - - Plan of Treatment Not on file Procedures Procedure Name Priority Date/Time Associated Diagnosis Comments INFLUENZA A/B, RSV, AND COVID-19 PCR Routine 11/17/2024 4:49 PM CDT from Last 3 Months Results * Influenza A/B, RSV, and COVID-19 PCR Nasopharyngeal (11/17/2024 4:49 PM CDT) COVID-19 RNA Negative Negative Influenza A RNA Negative Negative [facility] Influenza B RNA Negative Negative [facility] RSV RNA Negative Negative [facility] Comment: Interpretive data: Testing performed by [facility]. This test is performed using the [employer] Xpert Xpress CoV-2/Flu/RSV plus assay. This is a multiplex, real-time reverse transcriptase PCR assay intended for the qualitative detection of nucleic acid from SARS-CoV-2, influenza A, influenza B, and respiratory syncytial virus. This assay has been cleared by the [place] Food and Drug administration. The performance characteristics have been verified by the [facility]. Results must be considered in the clinical context, and a negative result does not rule out infection. Interpretive Data last revised 2023 Nasopharyngeal 11/17/2024 4: 49 PM CDT 11/18/2024 5:44 AM CDT Jean Marie Trivedi MD LAB MICROBIOLOGY - GENERAL OR DERABLES Final Result [facility] [id number] Department [place] [address] from Last 3 Months Insurance [facility] Care Teams Graphic Designer Relationship Specialty Start Date End Date Adolfo Howell DO [address] [place] [address] [address] PCP - General Family Medicine 11/17/24
--- OUTSIDE RECORDS SUMMARY | 2024-12-31 15:26 | XMS_ITS | Clinical Summary ---
Author Organization [facility] [address] Address [address] [place] [address] Care Team Providers Care Manager Primary Care Name Role Phone Adolfo Howell DO Primary Care Provider [phone] Allergies No known active allergies Medications brimonidine [...] Hyperlipidemia 07/03/2019 Anxiety 10/17/2018 Essential hypertension 10/17/2018 Encounters Date Type Department Care Team Description 11/19/2024 Results Follow[facility] Family Medicine at [address] [place] [phone] Madelin Sheth PA 11/17/2024 4:49 PM CDT - 11/17/2024 11:59 PM CDT Hospital Encounter [address] [address] Discharge Disposition: Discharge to home or self care 11/17/2024 4:15 PM CDT Office Visit [facility] Care at [address] [phone] Yessica Talley PA Acute viral syndrome (Primary Dx); Nausea and vomiting, unspecified vomiting type 11/17/2024 5:22 AM CDT - 11/17/2024 11:59 PM CDT Hospital Encounter [address] [address] Discharge Disposition: Discharge to home or self care from Last 3 Months Social History Tobacco Use Types Packs/Day Years Used Date Smoking Tobacco: Never Assessed Sex and Gender Information Value Date Recorded Sex Assigned at Not on file 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 Gender Identity Not on file Sexual Orientation Not on file Obstetrics History Last Filed Vital Signs Vital Sign Reading [...] Mass Index - - Plan of Treatment Health Maintenance Due Date Last Done Comments Colon Cancer Screening-Colonoscopy 1967 Depression Screening 1967 Hepatitis C Screening 1967 Prostate Cancer Screening-PSA 1967 Hepatitis B Screening 1985 Regular Well Visit/Exam 18-64 1985 Covid-19 Vaccine () 04/22/2024 07/04/2023, 07/12/2022, 07/06/2021, Additional history exists Influenza Vaccine (Season Ended) 2025 07/04/2023, 07/12/2022, 05/18/2021, Additional history exists DTaP/Tdap/Td Vaccine (2 - Td or Tdap) 05/12/2032 05/12/2022, 11/15/2020 Zoster Vaccine Completed 08/03/2020, 05/05/2020 Pneumococcal vaccine <65 Aged Out No longer eligible based on patient's age to complete this topic Procedures Procedure Name Priority Date/Time Associated Diagnosis Comments INFLUENZA A/B, RSV, AND COVID-19 PCR Routine 11/17/2024 4:49 PM CDT from Last 3 Months Results * Influenza A/B, RSV, and COVID-19 PCR Nasopharyngeal (11/17/2024 4:49 PM CDT) Pathologist [facility] COVID-19 RNA Negative Negative Influenza A RNA Negative Negative [facility] Influenza B RNA Negative Negative [facility] RSV RNA Negative Negative [facility] Comment: Interpretive data: Testing performed by [facility]. This test is performed using the [employer] Xpert Xpress CoV-2/Flu/RSV plus assay. This is a multiplex, real-time reverse transcriptase PCR assay intended for the qualitative detection of nucleic acid from SARS-CoV-2, influenza A, influenza B, and respiratory syncytial virus. This assay has been cleared by the [place] Food and Drug administration. The performance characteristics have been verified by the [facility]. Results must be considered in the clinical context, and a negative result does not rule out infection. Interpretive Data last revised 2023 Nasopharyngeal 11/17/2024 4: 49 PM CDT 11/18/2024 5:44 AM CDT us Jean Marie Trivedi MD LAB MICROBIOLOGY - GENERAL OR DERABLES Final Result [facility] [id number] Department [place] [address] [place] from Last 3 Months Insurance [facility] Care Teams Manager Primary Care Relationship Specialty Start Date End Date Adolfo Howell DO [address] [facility] [address] [facility] [place] [address] PCP - General Family Medicine 11/17/24
--- OUTSIDE RECORDS SUMMARY | 2024-12-31 15:26 | XMS_ITS | Encounter Summary ---
Author Organization [facility] Address [address] [facility] [place] [address] Care Team Providers Care Network/Telecom Engineer Name Role Phone Robb Madrigal MD Primary Care Provider + [phone] Adolfo Howell DO Primary Care Provider [phone] Robb Madrigal MD Primary Care Provider + [phone] Adolfo Howell DO Primary Care Provider [phone] Mona Mcclellan MD Primary Care Provider + [phone] Encounter Details Date Type Department Care Team (Late st Contact Info) Description 11/16/2020 Ophth Exam [facility] [address] [place] [phone] Lore Carbajal MD [address] [place], [place] [address]y [address] [place] [phone] Social History Tobacco Use Types Packs/Day Years Used Date Smoking Tobacco: Never Alcohol Use Standard Drinks/Week Comments Yes 0 (1 standard drink = 0.6 oz pur e alcohol) AUDIT-C Answer Date Recorded Q1: How often do you have a drink containing alc ohol? 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 Gender Identity Male 11/15/2020 9:52 AM CDT Sexual Orientation Not on file documented as of this encounter Plan of Treatment Upcoming Encounters Date Type Department Care Team (Late st Contact Info) Description 03/19/2025 10:30 AM CDT Office Visit [facility] - Ophthalmology [address] [place] [phone] documented as of this encounter Visit Diagnoses Not on filedocumented in this encounter Additional Health Concerns Infection Onset Date Last Indicated Resolved Time COVID-19 Confirmed 11/24/2020 11/24/2020 4:33 AM CDT documented as of this encounter Care Teams Network/Telecom Engineer Relationship Specialty Start Date End Date Robb Madrigal MD [address] [place] [phone] PCP - General Internal Medicine 11/14/20 05/29/22 Adolfo Howell DO [address] [place] [phone] PCP - General 05/30/22 08/24/22 Robb Madrigal MD [address] [place] [phone] PCP - General 08/25/22 09/07/22 Adolfo Howell DO [address] [place] [phone] PCP - General 09/08/22 12/23/24 Moan Mcclellan MD [address] [place] [phone] PCP - General Family Medicine 12/24/24 documented as of this encounter
--- OUTSIDE RECORDS SUMMARY | 2024-12-31 15:26 | XMS_ITS | Encounter Summary ---
Author Organization [facility] Address [address] [facility] [place] [address] Care Team Providers Care Technician Assistant Name Role Phone Robb Madrigal MD Primary Care Provider + [phone] Adolfo Howell DO Primary Care Provider [phone] Robb Madrigal MD Primary Care Provider + [phone] Adolfo Howell DO Primary Care Provider [phone] Mona Mcclellan MD Primary Care Provider + [phone] Encounter Details Date Type Department Care Team (Late st Contact Info) Description 11/15/2020 Ophth Exam [facility] [address] [place] [phone] Lore Carbajal MD [address] [place], [place] [address]y [facility] [address] [place] [phone] Social History Tobacco Use Types Packs/Day Years [...] on file 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 Gender Identity Male 11/15/2020 9:52 AM CDT Sexual Orientation Not on file documented as of this encounter Functional Status documented as of this encounter Plan of Treatment Upcoming Encounters Date Type Department Care Team (Late st Contact Info) Description 03/19/2025 10:30 AM CDT Office Visit [facility] - Ophthalmology [address] [place] [phone] documented as of this encounter Visit Diagnoses Not on filedocumented in this encounter Additional Health Concerns Infection Onset Date Last Indicated Resolved Time COVID-19 Confirmed 11/24/2020 11/24/2020 4:33 AM CDT documented as of this encounter Care Teams Technician Assistant Relationship Specialty Start Date End Date Robb Madrigal MD [address] [place] [phone] PCP - General Internal Medicine 11/14/20 05/29/22 Adolfo Howell DO [address] [place] [phone] PCP - General 05/30/22 08/24/22 Robb Madrigal MD [address] [place] [phone] PCP - General 08/25/22 09/07/22 [place] [address] [place] [phone] PCP - General 09/08/22 12/23/24 Mona Mcclellan MD [address] [place] [phone] PCP - General Family Medicine 12/24/24 documented as of this encounter
[2024-12-31 21:03] LABS: Alanine Aminotransferase 23 U/L (6-50); Albumin Level 4.4 g/dL (3.5-5.1); Alkaline Phosphatase 91 U/L (38-126); Anion Gap 6 mmol/L (4-12); Aspartate Amino Transferase 41 U/L (17-59); Bilirubin,Total 0.4 mg/dL (0.2-1.3); Blood Urea Nitrogen 13 mg/dL (9-20); Calcium 9.2 mg/dL (8.4-10.2); Carbon Dioxide 35 mmol/L (22-30); Chloride 99 mmol/L (98-107); Cholesterol 158 mg/dL (0-200); Estimated Glomerular Filt Rate > 60; Glucose 95 mg/dL (65-110); HDL Direct 67 mg/dL; Potassium 5.1 mmol/L (3.4-5.0); Sodium 140 mmol/L (137-145); Triglycerides 49 mg/dL (<150)
[2024-12-31 21:14] LABS: LDL Cholesterol Direct 62 mg/dL
[2024-12-31 21:39] LABS: Prostate Specific Antigen 0.4 ng/mL (< OR = 4.0)
[2024-12-31 22:26] LABS: Hepatitis C Virus Antibody Negative (Negative)
== END 2024-12-31 15:21 | disposition home or self-care (01) ==
PROVIDERS: PCP Family Medicine; Visit Provider Family Medicine
DX: E78.5 Hyperlipidemia, unspecified (principal); Z12.5 Encounter for screening for malignant neoplasm of prostate; I10 Essential (primary) hypertension; Z11.59 Encounter for screening for other viral diseases
CPT/HCPCS: 36415; 80053; 80061; 84153; 86803; G0103